=== PATIENT | male | born 1955 | race Caucasian/White ===

== ENCOUNTER 2024-11-13 09:02 | Outpatient (CLI) | payer MEDICARE, OTHER ==
[2024-11-13 09:56] LABS: Estimated GFR - POC 92.0
[2024-11-13] MEDS ORDERED: Iopamidol 370 76% 100 ML VIAL ONE (15:30)
== END 2024-11-13 09:03 | disposition home or self-care (01) ==
LOC: CSHCT 09:02
PROVIDERS: ATTEND Internal Medicine Gastroenterology
DX: D50.9 Iron deficiency anemia, unspecified (principal); Z86.0100 Personal history of colon polyps, unspecified; D62 Acute posthemorrhagic anemia; I70.90 Unspecified atherosclerosis; K57.30 Diverticulosis of large intestine without perforation or abscess without bleeding; N32.89 Other specified disorders of bladder
CPT/HCPCS: 36415; 74178; 82565; Q9967